=== PATIENT | female | born 1965 | race Caucasian/White ===

== ENCOUNTER 2017-09-16 14:12 | Emergency (ER) | payer MEDICAID ==
[~2017-09-16] VITALS: Ht 152.4 cm; Wt 53.1 kg
[2017-09-16 14:34] VITALS: BP 131/61; Ht 152.4 cm; Wt 53.1 kg
== END 2017-09-16 15:50 | disposition home or self-care (01) ==
LOC: ED 14:12
DX: J02.9 Acute pharyngitis, unspecified (principal); R06.02 Shortness of breath

== ENCOUNTER 2017-12-15 18:21 | Emergency (ER) | payer MEDICAID ==
[~2017-12-15] VITALS: Ht 149.9 cm; Wt 45.9 kg
[2017-12-15 18:31] VITALS: Ht 149.9 cm; Wt 45.9 kg
[2017-12-15 20:43] VITALS: BP 126/84
== END 2017-12-15 20:43 | disposition home or self-care (01) ==
LOC: ED 18:21
DX: R42 Dizziness and giddiness (principal)

== ENCOUNTER 2018-07-19 19:14 | Emergency (ER) | payer MEDICAID ==
[~2018-07-19] VITALS: Ht 152.4 cm; Wt 54.0 kg
[2018-07-19 19:44] VITALS: Ht 152.4 cm; Wt 54.0 kg
[2018-07-19 20:57] VITALS: BP 130/84
== END 2018-07-19 20:57 | disposition home or self-care (01) ==
LOC: ED 19:14
DX: M79.672 Pain in left foot (principal); M79.671 Pain in right foot; Z98.890 Other specified postprocedural states

== ENCOUNTER 2019-10-11 16:03 | Emergency (ER) | payer MEDICAID ==
[~2019-10-11] VITALS: Ht 152.4 cm; Wt 59.0 kg
[2019-10-11 16:14] VITALS: Ht 152.4 cm; Wt 59.0 kg
[2019-10-11 16:38] VITALS: BP 135/72
== END 2019-10-11 16:38 | disposition home or self-care (01) ==
LOC: ED 16:03
DX: B02.9 Zoster without complications (principal)